=== PATIENT | male | born 1965 | race Asian ===

== ENCOUNTER 2016-04-07 13:58 | Outpatient (CLI) | payer OTHER ==
[~2016-04-07] VITALS: Ht 193 cm; Wt 54.4 kg
[~2016-04-07 13:58] MED LIST: ALLO300T23 PO; BACLOFEN10 MG PO; FOLI1TAB26 PO; KLOR-CON M2020 MEQ OR; LEVAQUIN500 MG OR; NEXIUM40 M1 PO; TOLT4CAP2 PO; VIT C/ACEROL500 MG OR; ZINC50 MG OR
[2016-04-07 14:00] VITALS: BP 90/57; TEMP 98.7
[2016-04-07 14:45] LABS: PLATELET COUNT 461 K/uL (142-355)
[2016-04-07 14:59] LABS: POTASSIUM 3.7 mmol/L (3.6-5.2); SODIUM 131 mmol/L (136-145)
[2016-04-07 16:10] VITALS: BP 98/60; TEMP 98.7
== END 2016-04-07 21:28 | disposition home or self-care (01) ==
LOC: INF 13:58
PROVIDERS: Emergency Medicine
DX: D64.9 Anemia, unspecified (principal); N28.9 Disorder of kidney and ureter, unspecified; D46.Z Other myelodysplastic syndromes; E83.42 Hypomagnesemia; M86.9 Osteomyelitis, unspecified
CPT/HCPCS: 80053; 83735; 85027; 96372; J0881; J3420

== ENCOUNTER 2016-05-10 13:07 | Outpatient (CLI) | payer OTHER ==
[~2016-05-10] VITALS: Ht 193 cm; Wt 63.5 kg
[2016-05-10 13:00] VITALS: BP 95/69; TEMP 97.5
[2016-05-10 14:16] LABS: PLATELET COUNT 543 K/uL (142-355)
[2016-05-10 14:24] LABS: POTASSIUM 2.9 mmol/L (3.6-5.2); SODIUM 136 mmol/L (136-145)
[2016-05-10 15:35] VITALS: BP 86/63; TEMP 97.5
== END 2016-05-10 15:07 | disposition home or self-care (01) ==
LOC: INF 13:07
PROVIDERS: Internal Medicine
DX: N28.89 Other specified disorders of kidney and ureter (principal); D46.Z Other myelodysplastic syndromes; D64.9 Anemia, unspecified; E83.42 Hypomagnesemia
CPT/HCPCS: 36415; 80048; 83735; 85027; 96372; J0881; J3420

== ENCOUNTER 2016-05-18 14:01 | Outpatient (CLI) | payer OTHER ==
[2016-05-18 14:24] LABS: PLATELET COUNT 458 K/uL (142-355)
[2016-05-18 14:44] LABS: POTASSIUM 3.8 mmol/L (3.6-5.2); SODIUM 138 mmol/L (136-145)
== END 2016-05-18 19:20 | disposition home or self-care (01) ==
LOC: INF 14:01 → LABW 14:01
PROVIDERS: Emergency Medicine
DX: D46.Z Other myelodysplastic syndromes (principal); R53.81 Other malaise; E83.42 Hypomagnesemia; E87.6 Hypokalemia; N28.89 Other specified disorders of kidney and ureter
CPT/HCPCS: 36415; 80048; 82728; 83540; 83550; 83735; 85027

== ENCOUNTER 2016-06-07 13:50 | Outpatient (CLI) | payer OTHER ==
[~2016-06-07] VITALS: Ht 182.9 cm; Wt 59.0 kg
[2016-06-07 15:24] LABS: POTASSIUM 3.5 mmol/L (3.6-5.2); SODIUM 137 mmol/L (136-145)
[2016-06-07 15:43] LABS: PLATELET COUNT 334 K/uL (142-355)
[2016-06-07 16:10] VITALS: BP 68/47; TEMP 97.6
== END 2016-06-07 19:32 | disposition home or self-care (01) ==
LOC: INF 13:50
PROVIDERS: Emergency Medicine
DX: L89.154 Pressure ulcer of sacral region, stage 4 (principal); D46.9 Myelodysplastic syndrome, unspecified; D64.9 Anemia, unspecified; R53.81 Other malaise; K59.1 Functional diarrhea; A04.7 Enterocolitis due to Clostridium difficile
CPT/HCPCS: 36415; 80053; 85027; 85651; 86140; 87045; 87205; 87328; 87329; 87493; 87798; 87899; 96372; J0881; J3420